=== PATIENT | male | born 1980 | race Caucasian/White ===

== ENCOUNTER 2018-03-22 09:29 | Emergency (ER) | payer BC ==
[2018-03-22] MEDS ORDERED: KETOROLAC 30 MG/ML INJ ONE (09:56)
--- NOTE | 2018-03-22 10:18 | RAD REPORT ---
EXAM DESCRIPTION: CT - Stone Protocol - 03/22/2018 10:09 am CLINICAL HISTORY: Flank pain. FLANK PAIN COMPARISON: Abdomen W Erect dated 03/20/2018 TECHNIQUE: Axial images were obtained without oral or IV contrast. Lack of contrast limits solid org an and vascular assessment. The [id number] spans the entirety of the system partially obscuring uppermost abdomen and lung bases. Coronal reformatted images were obtained and reviewed. All CT scans are performed using dose optimization technique as appropriate and may include automated exposure control or mA/KV adjustment according to patient size. FINDINGS: The lower lung willis are clear. Imaged portions of the liver and spleen show no suspicious findings on non-contrast imaging. The panc reas and adrenal glands are normal. No pathologic lymphadenopathy in the abdomen or pelvis. No urinary tract stones or obstructive uropathy. No bowel obstruction, free air, free fluid or abscess. Sigmoid diverticulosis coli without diverticul itis. Normal appendix noted. No significant bony abnormality. IMPRESSION: No urinary tract stones or obstructive uropathy.
[2018-03-22 10:23] LABS: ALT/SGPT 48 U/L (12-78); AST/SGOT 28 U/L (15-37); Albumin 3.5 g/dL (3.4-5.0); Alkaline Phosphatase 109 U/L (45-117); BUN Blood Urea Nitrogen 15 mg/dL (7-18); Bicarbonate 29 mmol/L (21-32); Bilirubin Direct < 0.1 mg/dL (0-0.2); Bilirubin Total 0.5 mg/dL (0.2-1.0); Glucose Level 85 mg/dL (74-106); Lipase 160 U/L (73-393); Protein, Total 7.2 g/dL (6.4-8.2); Sodium Level 142 mmol/L (136-145)
[2018-03-22 10:29] LABS: Urine Blood NEGATIVE (NEG); Urine Glucose NEGATIVE (NEG); Urine Protein NEGATIVE (NEG); Urine pH 8.5 (5.0-7.0)
[2018-03-22 10:32] LABS: Absolute Monocytes 0.5 K/uL (0.1-1.3); Absolute Neutrophil 3.9 K/uL (1.8-8.0); Eosinophils % 3.4 % (0-4.4); Hematocrit 44.7 % (39.6-49.0); Lymphocytes % 29.7 % (15.3-44.8); MCH 29.7 pg (27.0-35.0); MCV 86.7 fL (80-100); MPV 9.7 fL (7.6-11.3); Monocytes % 7.6 % (3.3-12.3); RBC Red Blood Cell Count 5.16 M/uL (4.33-5.43)
--- NOTE | 2018-03-22 10:37 | EDPHYS ---
Physician Documentation [facility] Name: Kane Acosta Age: 37 yrs Sex: Male : 1980 Arrival Date: 03/22/2018 Time: 09:32 Bed 5 Private MD: Hakeem Rizo ED Physician Deng Gonzalez HPI: 03/22 09:59 This 37 yrs old Male presents to ER via Ambulatory with complaints of Side jr8 Pain, Shoulder Pain, Neck Pain, <24hrs Old. 09:59 Onset: The symptoms/episode began/occurred acutely, 2 day(s) ago. Associated signs and jr8 symptoms: The patient has no apparent associated signs or symptoms. Modifying factors: The patient symptoms are alleviated by nothing, the patient symptoms are aggravated by movement. The patient has not experienced similar symptoms in the past. The patient has been recently seen by a physician:. had plain films completed the other day with no acute findings. Stated that pain is worse and now radiating to right shoulder and neck. Worse with movement . Historical: - Allergies: 09:40 No Known Allergies; sg - Home Meds: 09:40 Xanax Oral [Active]; sg - PMHx: 09:40 Anxiety; sg - PSHx: 09:40 None; sg - Immunization history:: Adult Immunizations not up to date. - Social history:: Smoking status: Patient/guardian denies using tobacco. - Ebola Screening: : Patient negative for fever greater than or equal to 101.5 degrees Fahrenheit, and additional compatible Ebola Virus Disease symptoms Patient denies exposure to infectious person Patient denies travel to an Ebola-affected area in the 21 days before illness onset No symptoms or risks identified at this time. ROS: 09:59 Eyes: Negative for injury, pain, redness, and discharge, ENT: Negative for injury, jr8 pain, and discharge, Cardiovascular: Negative for chest pain, palpitations, and edema, Respiratory: Negative for shortness of breath, cough, wheezing, and pleuritic chest pain, MS/Extremity: Negative for injury and deformity, Skin: Negative for injury, rash, and discoloration, Neuro: Negative for headache, weakness, numbness, tingling, and seizure. 09:59 Neck: Positive for pain with movement, pain at rest, tenderness, Negative for bony tenderness. 09:59 Abdomen/GI: Negative for abdominal pain, nausea, vomiting, and diarrhea, abdominal distension, anorexia, dysphagia, hematemesis, black/tarry stool, rectal pain, rectal bleeding, bowel incontinence, flatulence. 09:59 Back: Positive for pain at rest, pain with movement, of the right trapezius, right scapular area, right subscapular area, right flank and right mid back. Exam: 09:59 Eyes: Pupils equal round and reactive to light, extra-ocular motions intact. Lids and jr8 lashes normal. Conjunctiva and sclera are non-icteric and not injected. Cornea within normal limits. Periorbital areas with no swelling, redness, or edema. ENT: Nares patent. No nasal discharge, no septal abnormalities noted. Tympanic membranes are normal and external auditory canals are clear. Oropharynx with no redness, swelling, or masses, exudates, or evidence of obstruction, uvula midline. Mucous membranes moist. Neck: Trachea midline, no thyromegaly or masses palpated, and no cervical lymphadenopathy. Supple, full range of motion without nuchal rigidity, or vertebral point tenderness. No Meningismus. Cardiovascular: Regular rate and rhythm with a normal S1 and S2. No gallops, murmurs, or rubs. Normal PMI, no JVD. No pulse deficits. Respiratory: Lungs have equal breath sounds bilaterally, clear to auscultation and percussion. No rales, rhonchi or wheezes noted. No increased work of breathing, no retractions or nasal flaring. Abdomen/GI: Soft, non-tender, with normal bowel sounds. No distension or tympany. No guarding or rebound. No evidence of tenderness throughout. Skin: Warm, dry with normal turgor. Normal color with no rashes, no lesions, and no evidence of cellulitis. MS/ Extremity: Pulses equal, no cyanosis. Neurovascular intact. Full, normal range of motion. Neuro: Awake and alert, GCS 15, oriented to person, place, time, and situation. Cranial nerves II-XII grossly intact. Motor strength 5/5 in all extremities. Sensory grossly intact. Cerebellar exam normal. Normal gait. 09:59 Back: pain, that is moderate, of the right scapular area, right subscapular area, right flank and right mid back, ROM is painful, normal spinal alignment noted, CVA tenderness, that is mild, is noted on the right. Vital Signs: 09:43 BP 145 / 75; Pulse 87; Resp 20; Temp 98; Pulse Ox 96% ; sv MDM: 09:37 Patient medically screened. 10:34 Data reviewed: vital signs, nurses notes, lab test result(s), radiologic studies, CT jr8 scan. Data interpreted: Pulse oximetry: on room air is 96 %. Interpretation: normal. Counseling: I had a detailed discussion with the patient and/or guardian regarding: the historical points, exam findings, and any diagnostic results supporting the discharge/admit diagnosis, lab results, radiology results, the need for outpatient follow up, a family practitioner, to return to the emergency department if symptoms worsen or persist or if there are any questions or concerns that arise at home. ED course: No acute findings on CT. Pain reproducible with palpation over musculature. More then likely musculoskeletal pain. Will be given medications to go home on. To follow up with Dr. Rizo after the weekend. If worse to come back . 03/22 09:49 Order name: CBC with Diff; Complete Time: 10:34 03/22 09:49 Order name: Basic Metabolic Panel; Complete Time: 10:34 03/22 09:50 Order name: LFT's; Complete Time: 10:34 03/22 09:50 Order name: Lipase; Complete Time: 10:34 03/22 09:50 Order name: CT Stone Protocol; Complete Time: 10:19 03/22 10:04 Order name: Urine Dipstick--Ancillary (enter results); Complete Time: 10:34 mb4 03/22 09:49 Order name: IV; Complete Time: 09:58 03/22 09:50 Order name: Urine Dipstick-Ancillary (obtain specimen); Complete Time: 10:42 Administered Medications: 09:58 Drug: TORadol 30 mg Route: IVP; Site: right hand; sv 10:42 Follow up: Response: No adverse reaction; Pain is decreased ss Disposition: 14:44 Co-signature as Attending Physician, Deng Gonzalez MD I agree with the assessment and kdr plan of care. Disposition: 03/22/18 10:36 Discharged to Home. Impression: Muscle spasm of back. - Condition is Stable. - Discharge Instructions: Back Exercises, Nhbv-[id number], Heat Therapy. - Prescriptions for Ibuprofen 800 mg Oral Tablet - take 1 tablet by ORAL route every 12 hours As needed take with food; 20 tablet. Cyclobenzaprine 10 mg Oral Tablet - take 1 tablet by ORAL route every 8 hours As needed; 30 tablet. - Medication Reconciliation Form, Thank You Letter, Antibiotic Education, Prescription Opioid Use form. - Work release form (03/22/18 10:43). ss - Follow up: Hakeem Rizo MD; When: 5 - 6 days; Reason: Recheck today's complaints, Continuance of care, Re-evaluation by your physician. - Problem is new. - Symptoms have improved. Signatures: Dispatcher [employer] EDLindsay Yang RN RN Omar Sullivan RN RN Deng Bhatti MD MD [facility] Nati Barnett RN RN ss Enrique Dewitt PA PA jr8 Corrections: (The following items were deleted from the chart) 10:42 10:36 03/22/2018 10:36 Discharged to Home. Impression: Muscle spasm of back. Condition ss is Stable. Forms are Medication Reconciliation Form, Thank You Letter, Antibiotic Education, Prescription Opioid Use. Follow up: Hakeem Rizo; When: 5 - 6 days; Reason: Recheck today's complaints, Continuance of care, Re-evaluation by your physician. Problem is new. Symptoms have improved. jr8
--- NOTE | 2018-03-22 10:37 | ER ---
Nurse's Notes [facility] Name: Kane Acosta Age: 37 yrs Sex: Male : 1980 Arrival Date: 03/22/2018 Time: 09:32 Bed 5 Private MD: Hakeme Rizo Diagnosis: Muscle spasm of back Presentation: 03/22 09:37 Presenting complaint: Patient states: Right sided pain that radiates into right sg shoulder and right side of neck, pt reports these symptoms began Leon. Was seen by PCP and had xrays which were negative, had orders for a CT but d/t orders and insurance difficulties CT was not done. Here today d/t increase in pain and developing nausea, denies trauma or injury, denies fever/vomiting/diarrhea. Transition of care: patient was not received from another setting of care. Onset of symptoms was March 22, 2018. Risk Assessment: Do you want to hurt yourself or someone else? Patient reports no desire to harm self or others. Initial Sepsis Screen: Does the patient meet any 2 criteria? No. Patient's initial sepsis screen is negative. Does the patient have a suspected source of infection? No. Patient's initial sepsis screen is negative. Care prior to arrival: None. 09:37 Method Of Arrival: Ambulatory sg 09:37 Acuity: SHRUTHI 3 sg Historical: - Allergies: 09:40 No Known Allergies; sg - Home Meds: 09:40 Xanax Oral [Active]; sg - PMHx: 09:40 Anxiety; sg - PSHx: 09:40 None; sg - Immunization history:: Adult Immunizations not up to date. - Social history:: Smoking status: Patient/guardian denies using tobacco. - Ebola Screening: : Patient negative for fever greater than or equal to 101.5 degrees Fahrenheit, and additional compatible Ebola Virus Disease symptoms Patient denies exposure to infectious person Patient denies travel to an Ebola-affected area in the 21 days before illness onset No symptoms or risks identified at this time. Screenin:43 Abuse screen: Denies threats or abuse. Denies injuries from another. Nutritional sv screening: No deficits noted. Tuberculosis screening: No symptoms or risk factors identified. Fall Risk None identified. Assessment: 09:40 General: Appears in no apparent distress. uncomfortable, obese, Behavior is calm, sv cooperative, appropriate for age. General: Denies trauma or fall. Pain: Complains of pain in right trapezius, right scapular area, right subscapular area, right mid back, anterior aspect of right shoulder and posterior aspect of right shoulder Pain began a week Is intermittent, Alleviated by nothing. Aggravated by increased activity, Also complains of nausea. Neuro: Level of Consciousness is awake, alert, obeys commands, Oriented to person, place, time, situation, Moves all extremities. Full function Gait is steady, Speech is normal. Respiratory: Respiratory effort is even, unlabored, Respiratory pattern is regular, symmetrical. : Denies burning with urination, urinary frequency, urgency. Derm: Skin is normal. Musculoskeletal: Range of motion: intact in all extremities. Vital Signs: 09:43 BP 145 / 75; Pulse 87; Resp 20; Temp 98; Pulse Ox 96% ; sv ED Course: 09:32 Patient arrived in ED. sb2 09:33 Hakeem Rizo MD is Private Physician. sb2 09:37 [facility] jr8 09:37 Deng Gonzalez MD is Attending Physician. jr8 09:37 Lindsay Barros RN is Primary Nurse. sv 09:37 Arm band placed on. sg 09:39 Triage completed. sg 09:43 Patient has correct armband on for positive identification. Placed in gown. Bed in low sv position. Pulse ox on. NIBP on. Door closed. Head of bed elevated. 09:55 Initial lab(s) drawn, by me, sent to lab. Inserted saline lock: 20 gauge in right hand, sv using aseptic technique. Blood collected. Flushed right hand with 5 ml normal saline. 09:59 Awaiting lab results, Awaiting CT Scan. sv 10:[address] mw3 10:[address] via wheelchair. sv 10:07 CT completed. Patient tolerated procedure well. Patient moved back from CT. mw3 10:10 CT Stone Protocol In Process Unspecified. EDMS 10:36 Hakeem Rizo MD is Referral Physician. jr8 10:42 No provider procedures requiring assistance completed. Patient did not have IV access ss during this emergency room visit. Administered Medications: 09:58 Drug: TORadol 30 mg Route: IVP; Site: right hand; sv 10:42 Follow up: Response: No adverse reaction; Pain is decreased ss Outcome: 10:36 Discharge ordered by MD. wilkinson 10:42 Discharged to home ambulatory. ss 10:42 Condition: good 10:42 Discharge instructions given to patient, Instructed on discharge instructions, follow up and referral plans. medication usage, Demonstrated understanding of instructions, follow-up care, medications, Prescriptions given X 2. 10:42 Patient left the ED. ss Signatures: Dispatcher [employer] EDLindsay Yang RN RN sv Gay, Steven, RN RN sg Smirch, Shelby, RN RN ss Roszak, Josh, PA PA jr8 Alina Hwang sb2 Joanie Hutchins mw3
== END 2018-03-22 10:42 | disposition home or self-care (01) ==
LOC: ER 09:29
DX: M62.830 Muscle spasm of back (principal); F41.9 Anxiety disorder, unspecified
CPT/HCPCS: 36415; 74176; 76377; 80048; 80076; 81003; 83690; 85025; 96374; 99284